=== PATIENT | male | born 1980 | race Hispanic/Latino ===

== ENCOUNTER 2022-06-20 10:14 | Emergency (ER) | payer BC, OTHER ==
[~2022-06-20] VITALS: Ht 175.3 cm; Wt 181.4 kg
[2022-06-20 10:18] VITALS: BP 158/101
[2022-06-20] MEDS ORDERED: ASPIRIN 81MG CHEW TAB PO ONE (11:00)
[2022-06-20] MEDS ORDERED: INSULIN HUMULIN R 100 UNIT/ML 3ML IV ONE (11:00)
[2022-06-20] MEDS ORDERED: IBUP-2071 PO (11:29)
[2022-06-20] MEDS ORDERED: CYCL10TA16 PO (11:29)
[2022-06-20] MEDS ORDERED: IBUPROFEN 800 MG TAB ONE (11:59)
[2022-06-20] MEDS ORDERED: IBUPROFEN 800 MG TAB PO ONE (12:00)
== END 2022-06-20 12:13 | disposition home or self-care (01) ==
LOC: EDH 10:14
DX: S43.402A Unspecified sprain of left shoulder joint, initial encounter (principal); S20.212A Contusion of left front wall of thorax, initial encounter; S09.90XA Unspecified injury of head, initial encounter; F17.200 Nicotine dependence, unspecified, uncomplicated; Z98.890 Other specified postprocedural states; W06.XXXA Fall from bed, initial encounter; Y93.89 Activity, other specified; Y92.89 Other specified places as the place of occurrence of the external cause; Y99.8 Other external cause status
CPT/HCPCS: 73030; 82948; 93005

== ENCOUNTER 2022-12-13 11:05 | Emergency (ER) | payer BC ==
[~2022-12-13] VITALS: Ht 172.7 cm; Wt 181.4 kg
[~2022-12-13 11:05] MED LIST: CYCL10TA16 PO; IBUP-2071 PO
[2022-12-13 11:16] VITALS: BP 130/64
[2022-12-13] MEDS ORDERED: CYCL10TA16 PO (12:44)
[2022-12-13] MEDS ORDERED: IBUP-2070 PO (12:44)
== END 2022-12-13 13:00 | disposition home or self-care (01) ==
LOC: EDH 11:05
DX: S39.012A Strain of muscle, fascia and tendon of lower back, initial encounter (principal); S80.211A Abrasion, right knee, initial encounter; M25.562 Pain in left knee; W01.0XXA Fall on same level from slipping, tripping and stumbling without subsequent striking against object, initial encounter; Y93.89 Activity, other specified; Y92.89 Other specified places as the place of occurrence of the external cause; Y99.8 Other external cause status
CPT/HCPCS: 72100; 73562

== ENCOUNTER 2025-04-17 18:47 | Emergency (ER) | payer BC ==
[~2025-04-17] VITALS: Ht 175.3 cm; Wt 145.1 kg
[~2025-04-17 18:47] MED LIST changes: +IBUP-2070 PO
--- NOTE | 2025-04-17 19:02 | NUR ---
PT PLACED INTO FAST TRACK AT THIS TIME
[2025-04-17] MEDS ORDERED: KETO10TA2 PO (19:51)
--- NOTE | 2025-04-17 19:53 | ERN ---
General Chief Complaint: Upper Extremity Pain/Injury Stated Complaint: ARM PAIN Time Seen by MD: 18:49 Time Seen by Midlevel: 18:49 Source: patient History of Present Illness Initial Comments Patient is a 44-year-old male presenting to the emergency department for evaluation of left elbow pain after jiu jitsu. The patient noticed pain and swelling so he decided to report to the ER for further evaluation. No other complaints reported Allergies: Coded Allergies: No Known Drug Allergies (Unverified Allergy, Unknown, 06/20/22) Home Meds Active Scripts Cyclobenzaprine HCl (Flexeril) 10 Mg Tab, 10 MG PO TID PRN for MUSCLE SPASMS, #9 TAB Prov:BRENT RAMIREZ V FUEL CONVERSION TECHNICIAN 12/13/22 Ibuprofen (Ibuprofen) 600 Mg Tablet, 600 MG PO Q6H PRN for PAIN for 10 Days, #40 TAB Prov:BRENT RAMIREZ V FUEL CONVERSION TECHNICIAN 12/13/22 Ibuprofen (Ibuprofen) 800 Mg Tablet, 800 MG PO Q8H, #30 TAB 0 Refills Prov:DEBI ARITA MD 06/20/22 Cyclobenzaprine HCl (Flexeril) 10 Mg Tab, 10 MG PO TID for muscle sstiffness, #14 TAB 0 Refills Prov:DEBI ARITA MD 06/20/22 Past Medical History Past Medical History: No Pertinent History Medical History Other: denies pmhx Past Surgical History: Bariatric Surgery Surgical History Other: GASTRIC BAND, HERNIA Family History Family History: Negative Social History Social History: Smokers, Lives with family ROS Dictation CONSTITUTIONAL: Negative except for HPI HEAD/FACE: Negative except for HPI EENT: Negative except for HPI RESPIRATORY: Negative except for HPI GASTROINTESTINAL/ABDOMINAL: Negative except for HPI GENITOURINARY: Negative except for HPI MUSCULOSKELETAL: Negative except for HPI INTEGUMENTARY: Negative except for HPI NEUROLOGICAL/PSYCH: Negative except for HPI HEMATOLOGIC/LYMPHATIC: Negative except for HPI All Systems Negative, Except as noted above. 13 point review of systems assessed and all negative except for above. Physical Exam Physical Exam Dictation Vital Signs reviewed General Appearance: Alert, oriented x 3, no acute distress, well developed, nourished. Head and Face: non-traumatic. Eyes: PERRL, pink conjunctivas, eyelid no trauma, anterior chamber with arcus senilis. Ears: Pinnas intact and no signs of trauma or erythema ear canals clear and no discharge TM no erythema Nose: No discharge, no bleeding. Oropharynx: Mouth normal, tongue pink, pharynx clear,no erythema, tonsils no exudates, no abscesses noted, mucous membrane moist Neck: Supple, non-tender, no thyromegaly, no masses, no JVD, no bruits Breast:Deferred Chest:No tenderness, no crepitus, no paradoxical movement, no retractions Lungs:Clear, well-ventilated, symmetric, no rales, no wheezing, no rhonchi, no stridor, good breath sounds bilaterally Heart: Regular rate, regular rhythm, no murmur, no gallops Vascular: no peripheral edema, Abdomen: Soft, positive bowel sounds, nondistended, no guarding, nontender, no rebound, no masses no hepatomegaly, no splenomegaly, no Jsohi's sign, no hernias. Rectal: Deferred Genital: Deferred Neurological: Normal speech, motor function intact, sensory function intact Musculoskeletal: Neck nontender, full range of motion, back nontender, full range of motion, Extremities: Mild swelling and tenderness overlying the left lateral elbow with no obvious signs of external trauma or deformities, extremity is neurovascularly intact Skin: Color pink, dry, no turgor, no rash, no lacerations, no abrasions, no contusions. Lymphatic: Deferred MDM MDM: Differential diagnosis: Fracture, contusion, strain There are no social concerns with this patient. Prescription drug management Prescriptions will include: Toradol Medical management and examination interpretation discussions were had by me with other qualified healthcare professionals as indicated for the patient's care. ED Course Orders Procedure Category Date Status Time Ketorolac PHA 04/17/25 Complete Tromethamine 30mg/Ml 19:00 Elbow Comp 3+Vws Lt RAD 04/17/25 Taken 18:52 Current Medications Medications (Trade) Dose Ordered Sig/Susanne Route PRN Reason Start Time Stop Time Status Last Admin Dose Admin Ketorolac Tromethamine (toRADol) 30 mg ONCE ONCE IM 04/17/25 19:00 04/17/25 19:01 DC 04/17/25 19:10 Vital Signs Date Time Temp Pulse Resp B/P (MAP) Pulse Ox O2 Delivery O2 Flow Rate FiO2 04/17/25 18:56 98.2 85 18 122/63 96 Room Air* 0 21 04/17/25 18:53 98.2 85 18 122/63 96 Room Air 0 DX & DISP Disposition: Discharge Departure Impression: Primary Impression: Strain of left elbow Condition: Stable Scripts Ketorolac Tromethamine (Ketorolac Tromethamine) 10 Mg Tablet 1 TAB PO TID for pain for 5 Days, #15 TAB 0 Refills Prov: CARLI LEDESMA 04/17/25 Additional Instructions: Your elbow x-ray does not show any evidence of an acute fracture or dislocation. Your pain appears to be musculoskeletal in nature. I have given you a prescription for ketorolac which should help improve your pain over the next couple of days. Follow up with your primary care doctor in 2-3 days for repeat evaluation. Referrals: MARCELO ATKINS (PCP) Time of Disposition: 19:51 I have reviewed the case, and I agree with, Diagnosis and Plan I performed the substantive portion of the visit. I have reviewed and personally made and approve the management plan that is documented in the note by myself or the AGUEDA. I acknowledge for responsibility for the patient's management plan. CARLI LEDESMA Apr 17, 2025 19:53
[2025-04-17 19:56] VITALS: BP 129/67; PULSE 87; RESP 17; TEMP 98.3; O2SAT 95
--- NOTE | 2025-04-17 20:46 | HMCIMG ---
EXAM: CR Left Elbow, 1 view. CLINICAL HISTORY: Injury during this lung. COMPARISON: None provided. FINDINGS: No acute fracture or aggressive appearing osseous lesion. Joint spaces are within normal limits. No radiographic evidence of joint effusion. The soft tissues are unremarkable. IMPRESSION: 1. No acute osseous abnormality. /[place]
== END 2025-04-17 20:08 | disposition home or self-care (01) ==
LOC: EDH 18:47
DX: S66.912A Strain of unspecified muscle, fascia and tendon at wrist and hand level, left hand, initial encounter (principal); F17.200 Nicotine dependence, unspecified, uncomplicated; Z79.899 Other long term (current) drug therapy; X58.XXXA Exposure to other specified factors, initial encounter; Y93.72 Activity, wrestling; Y92.89 Other specified places as the place of occurrence of the external cause; Y99.8 Other external cause status
CPT/HCPCS: 99284; 73080; 96372; J1885